=== PATIENT | male | born 1975 | race African-American/Black ===

== ENCOUNTER 2017-05-04 12:04 | Emergency (ER) | payer OTHER ==
[2017-05-04 13:17] LABS: Hemoglobin 9.7 g/dL (14.0-18.0); Mean Corpuscular HGB CONC 32.1 g/dL (32.0-36.0); Mean Corpuscular Volume 71.4 fl (80.0-94.0); Mean Platelet Volume 7.7 fL (7.4-10.4); Platelet Count 146 thou/uL (130-400); RBC Distribution Width 19.2 % (11.5-14.5); Red Blood Cell (RBC) Count 4.24 mill/uL (4.70-6.10); White Blood Cell (WBC) Count 4.1 thou/uL (4.8-10.8)
[2017-05-04 13:40] LABS: #Eosinphils 0.1 thou/uL (0.0-0.7); #Lymphocytes 1.3 thou/uL (1.20-3.40); #Monocytes 0.4 thou/uL (0.11-0.59); #Neutrophils 2.4 thou/uL (1.40-6.50); %Basophils 0.4 % (0.0-1.0); %Eosinophils 1.2 % (0.0-10.0); %Lymphocytes 30.2 % (21.0-51.0); %Monocytes 9.7 % (0.0-10.0); %Neutrophils 58.5 % (42.0-75.0); Anisocytosis SLIGHT = 6-15 cells (100X) (0-5/hpf); Hypochromia SLIGHT = 6-15 cells (100X) (0-5/hpf); MDiff Complete? YES; Ovalocytes SLIGHT = 2-5 cells (100X) (0-1/hpf); PLT Morphology Comment Appears Adequate
[2017-05-04 15:59] LABS: ALT (SGPT) 28 U/L (8-55); AST (SGOT) 25 U/L (5-34); Alkaline Phosphatase 123 U/L (40-150); Anion Gap 11 mmol/L (10-20); BUN (Urea Nitrogen) 8 mg/dL (8.9-20.6); Bilirubin, Total 0.6 mg/dL (0.2-1.2); Calc. Creatinine Clearance 0 mL/min (70-130); Carbon Dioxide 27 mmol/L (22-29); Chloride 106 mmol/L (98-107); Estimated GFR-MDRD 75; Globulin 3.2 g/dL (2.4-3.5); Glucose 84 mg/dL (70-105); Potassium 3.9 mmol/L (3.5-5.1); Protein, Total 7.2 g/dL (6.0-8.3); Sodium 140 mmol/L (136-145)
== END 2017-05-04 16:48 | disposition left against medical advice (07) ==
LOC: ERS 12:04
DX: K62.5 Hemorrhage of anus and rectum (principal); I10 Essential (primary) hypertension
CPT/HCPCS: 36415; 80053; 85025; 99283

== ENCOUNTER 2021-08-23 10:44 | Emergency (ER) | payer OTHER, SELFPAY ==
[2021-08-23] MEDS ORDERED: methylPREDNISolone Sod Succ/PF 125 MG/2 ML VIAL ONE (11:22)
[2021-08-23] MEDS ORDERED: Famotidine/PF 20 mg/2ml Vial ONE (11:22)
[2021-08-23] MEDS ORDERED: diphenhydrAMINE 50 MG/ML VIAL ONE (11:22)
[2021-08-23 11:29] LABS: #Eosinphils 0.2 thou/uL (0.0-0.7); #Lymphocytes 1.5 thou/uL (1.20-3.40); #Monocytes 0.5 thou/uL (0.11-0.59); #Neutrophils 2.6 thou/uL (1.40-6.50); %Basophils 0.8 % (0.0-1.0); %Eosinophils 3.9 % (0.0-10.0); %Lymphocytes 31.3 % (21.0-51.0); Hemoglobin 10.1 g/dL (14.0-18.0); Mean Corpuscular Hemoglobin 18.9 pg (27.0-31.0); Mean Corpuscular Volume 62.9 fL (78.0-98.0); Mean Platelet Volume 11.4 fL (7.4-10.4); Platelet Count 162 thou/uL (130-400); RBC Distribution Width 23.3 % (11.5-14.5); Red Blood Cell (RBC) Count 5.33 mill/uL (4.70-6.10); White Blood Cell (WBC) Count 4.8 thou/uL (4.8-10.8)
[2021-08-23 11:31] LABS: Reflex for Review?? NO
[2021-08-23 11:48] LABS: ALT (SGPT) Less than 7 U/L (8-55); AST (SGOT) 10 U/L (5-34); Alkaline Phosphatase 76 U/L (40-110); Anion Gap 13 mmol/L (10-20); BUN (Urea Nitrogen) 19 mg/dL (8.9-20.6); Bilirubin, Total 0.8 mg/dL (0.2-1.2); Calc. Creatinine Clearance 0 mL/min (70-130); Calcium 9.2 mg/dL (7.8-10.44); Carbon Dioxide 22 mmol/L (22-29); Chloride 108 mmol/L (98-107); Estimated GFR 49; Globulin 4.5 g/dL (2.4-3.5); Glucose 89 mg/dL (70-105); Potassium 3.9 mmol/L (3.5-5.1); Protein, Total 8.5 g/dL (6.0-8.3); Sodium 139 mmol/L (136-145)
[2021-08-23 11:53] LABS: Hypochromia MODERATE=16-30 cells (100X) (0-5/hpf); MDiff Complete? YES; Microcytosis MARKED = >30 cells (100X) (0-5/hpf); Ovalocytes MODERATE= 6-15 cells (100X) (0-1/hpf); Platelet Morphology Comment Appears Adequate; Polychromasia SLIGHT = 2-3 cells (100X) (0-2/hpf); Schistocytes SLIGHT = 2-5 cells (100X) (0-1/hpf)
== END 2021-08-23 13:42 | disposition left against medical advice (07) ==
LOC: ERS 10:44
DX: T78.3XXA Angioneurotic edema, initial encounter (principal); I10 Essential (primary) hypertension
CPT/HCPCS: 80053; 85025; 96374; 96375; J1200; J2930; S0028

== ENCOUNTER 2022-03-02 12:33 | Emergency (ER) | payer SELFPAY ==
[2022-03-02] MEDS ORDERED: Ketorolac Tromethamine 30 MG/ML VIAL ONE (13:09)
[2022-03-02] MEDS ORDERED: Acetaminophen 500 MG TAB ONE (13:09)
== END 2022-03-02 13:50 | disposition home or self-care (01) ==
LOC: ERS 12:33
DX: M10.9 Gout, unspecified (principal); I10 Essential (primary) hypertension
CPT/HCPCS: 96372; J1885

== ENCOUNTER 2022-10-06 10:23 | Observation (INO) | payer BC, SELFPAY ==
[2022-10-06 10:55] LABS: #Eosinphils 0.2 thou/uL (0.0-0.7); #Monocytes 0.3 thou/uL (0.11-0.59); #Neutrophils 1.7 thou/uL (1.40-6.50); %Basophils 0.8 % (0.0-1.0); %Eosinophils 4.9 % (0.0-10.0); %Lymphocytes 42.3 % (21.0-51.0); %Monocytes 8.8 % (0.0-10.0); %Neutrophils 42.9 % (42.0-75.0); Hematocrit 35.9 % (42.0-52.0); Hemoglobin 11.2 g/dL (14.0-18.0); Mean Corpuscular HGB CONC 31.2 g/dL (32.0-36.0); Mean Corpuscular Hemoglobin 20.7 pg (27.0-31.0); Mean Corpuscular Volume 66.2 fl (78.0-98.0); RBC Distribution Width 23.4 % (11.5-14.5); Red Blood Cell (RBC) Count 5.42 mill/uL (4.70-6.10); White Blood Cell (WBC) Count 3.9 10x3/uL (4.8-10.8)
[2022-10-06 11:10] LABS: Troponin I 0.048 ng/mL (< 0.028)
[2022-10-06 11:26] LABS: Anisocytosis MODERATE=16-30 cells HPF (0-5); Burr Cells SLIGHT = 2-5 cells HPF (0-1); CellaVision Operator ID LAB.NR; Elliptocytes SLIGHT = 2-5 cells HPF (0-1); Hypochromia SLIGHT = 6-15 cells HPF (0-5); Ovalocytes SLIGHT = 2-5 cells HPF (0-1); Platelet Adequacy Comment Platelets Normal; Polychromasia SLIGHT = 2-3 cells HPF (0-2); Target Cells SLIGHT = 2-5 cells HPF (0-1)
[2022-10-06 11:27] LABS: Platelet Count 160 10x3/uL (130-400)
[2022-10-06 11:42] LABS: ALT (SGPT) Less than 7 U/L (8-55); AST (SGOT) 27 U/L (5-34); Albumin 3.2 g/dL (3.5-5.0); Alkaline Phosphatase 58 U/L (40-110); Anion Gap 13 mmol/L (10-20); Bilirubin, Total 0.9 mg/dL (0.2-1.2); Calc. Creatinine Clearance 0 mL/min (70-130); Calcium 8.6 mg/dL (7.8-10.44); Carbon Dioxide 18 mmol/L (22-29); Chloride 106 mmol/L (98-107); Estimated GFR 51; Globulin 6.7 g/dL (2.4-3.5); Glucose 99 mg/dL (70-105); Lipase 30 U/L (8-78); Potassium 4.2 mmol/L (3.5-5.1); Protein, Total 9.9 g/dL (6.0-8.3); Sodium 133 mmol/L (136-145)
[2022-10-06 11:53] LABS: BUN (Urea Nitrogen) 10 mg/dL (8.9-20.6)
[2022-10-06] MEDS ORDERED: Acetaminophen 325 MG TAB PO PRN (13:19)
[2022-10-06] MEDS ORDERED: HYDROcodone/Acetaminophen 5/325 mg Tablet PO PRN (13:19)
[2022-10-06 14:34] LABS: Troponin I 0.054 ng/mL (< 0.028)
[2022-10-06 16:02] VITALS: BMI 26.6
[2022-10-06] MEDS: Carvedilol 6.25 MG TAB PO SCH (16:55)
[2022-10-06 17:53] LABS: Troponin I 0.054 ng/mL (< 0.028)
[2022-10-06] MEDS ORDERED: Atorvastatin Calcium 40 MG TAB PO SCH (21:00)
[2022-10-07 06:12] LABS: #Eosinphils 0.2 thou/uL (0.0-0.7); #Monocytes 0.5 thou/uL (0.11-0.59); %Basophils 0.6 % (0.0-1.0); %Eosinophils 5.7 % (0.0-10.0); %Lymphocytes 51.1 % (21.0-51.0); %Monocytes 14.6 % (0.0-10.0); Hematocrit 33.9 % (42.0-52.0); Hemoglobin 10.6 g/dL (14.0-18.0); Mean Corpuscular HGB CONC 31.3 g/dL (32.0-36.0); Mean Corpuscular Hemoglobin 20.7 pg (27.0-31.0); Mean Corpuscular Volume 66.1 fl (78.0-98.0); Platelet Count 155 10x3/uL (130-400); RBC Distribution Width 23.1 % (11.5-14.5); Red Blood Cell (RBC) Count 5.13 mill/uL (4.70-6.10); White Blood Cell (WBC) Count 3.5 10x3/uL (4.8-10.8)
[2022-10-07 06:27] LABS: Anion Gap 10 mmol/L (10-20); BUN (Urea Nitrogen) 10 mg/dL (8.9-20.6); Calc. Creatinine Clearance 82 mL/min (70-130); Calcium 8.5 mg/dL (7.8-10.44); Carbon Dioxide 21 mmol/L (22-29); Cardiac Risk 5.4 (Less than 4.5); Chloride 106 mmol/L (98-107); Cholesterol 102 mg/dl (< 200 Desired); Estimated GFR 63; Glucose 82 mg/dL (70-105); HDL Cholesterol 19 mg/dL (>60 Neg Risk); LDL Cholesterol, Calculated 68 mg/dL; Magnesium 1.6 mg/dL (1.6-2.6); Potassium 3.7 mmol/L (3.5-5.1); Sodium 133 mmol/L (136-145); Triglycerides 73 mg/dL (Less than 150)
[2022-10-07 06:29] LABS: Delete Auto Diff?? NO
[2022-10-07] MEDS ORDERED: Aspirin 81 mg Enteric Coated Tablet PO SCH (09:00)
[2022-10-07] MEDS ORDERED: Losartan 25 MG TAB PO SCH (09:00)
[2022-10-07] MEDS: Carvedilol 6.25 MG TAB PO SCH (09:30)
[2022-10-07] MEDS ORDERED: Magnesium 2 GM/50 ML(in water) 2 GM in Premix Bag 1 BAG IVPB SCH (11:00)
[2022-10-07 11:47] VITALS: BP 124/84; TEMP 98.3
[2022-10-08 13:38] LABS: %CD4 (Helper/Inducer) 12.9 % (30.8-58.5); Absolute CD4 245 /uL (359-1519); Lymphocytes/Gated Cell Count 1.9 x10E3/uL (0.7-3.1); Total Lymphocyte 53 % (Not Estab.); WBC Total Count 3.6 x10E3/uL (3.4-10.8)
[2022-10-08 22:36] LABS: LOG10 HIV-1 RNA 4.097 (.)
== END 2022-10-07 13:05 | disposition home or self-care (01) ==
LOC: ERS 10:23 → 2NO 12:54
PROVIDERS: ADMIT Family Medicine; ATTEND Hospitalist
DX: B20 Human immunodeficiency virus [HIV] disease (principal); I42.8 Other cardiomyopathies; E83.42 Hypomagnesemia; I13.0 Hypertensive heart and chronic kidney disease with heart failure and stage 1 through stage 4 chronic kidney disease, or unspecified chronic kidney disease; I50.22 Chronic systolic (congestive) heart failure; N18.9 Chronic kidney disease, unspecified; Z91.041 Radiographic dye allergy status
CPT/HCPCS: 36415; 70450; 71045; 80048; 80053; 80061; 83690; 83735; 83880; 84443; 84484; 85025; 86361; 87536; 93005; 94760; 96374; G0378; J3475

== ENCOUNTER 2023-04-10 11:05 | Inpatient (IN) | payer BC, SELFPAY ==
[2023-04-10 12:04] LABS: #Eosinphils 0.1 thou/uL (0.0-0.7); #Monocytes 0.4 thou/uL (0.11-0.59); #Neutrophils 2.8 thou/uL (1.40-6.50); %Basophils 0.7 % (0.0-1.0); %Monocytes 9.7 % (0.0-10.0); %Neutrophils 62.6 % (42.0-75.0); Hematocrit 40.4 % (42.0-52.0); Hemoglobin 12.7 g/dL (14.0-18.0); Mean Corpuscular HGB CONC 31.4 g/dL (32.0-36.0); Mean Corpuscular Hemoglobin 21.5 pg (27.0-31.0); Mean Corpuscular Volume 68.4 fl (78.0-98.0); Platelet Count 195 10x3/uL (130-400); RBC Distribution Width 22.2 % (11.5-14.5); Red Blood Cell (RBC) Count 5.91 mill/uL (4.70-6.10); White Blood Cell (WBC) Count 4.4 10x3/uL (4.8-10.8)
[2023-04-10 12:26] LABS: ALT (SGPT) 9 U/L (8-55); AST (SGOT) 12 U/L (5-34); Albumin 3.7 g/dL (3.5-5.0); Alkaline Phosphatase 62 U/L (40-110); Anion Gap 12 mmol/L (10-20); BUN (Urea Nitrogen) 17 mg/dL (8.9-20.6); Bilirubin, Total 1.3 mg/dL (0.2-1.2); Calc. Creatinine Clearance 0 mL/min (70-130); Calcium 8.6 mg/dL (7.8-10.44); Carbon Dioxide 23 mmol/L (22-29); Chloride 108 mmol/L (98-107); Estimated GFR 51; Globulin 4.6 g/dL (2.4-3.5); Glucose 83 mg/dL (70-105); Potassium 3.7 mmol/L (3.5-5.1); Protein, Total 8.3 g/dL (6.0-8.3); Sodium 139 mmol/L (136-145)
[2023-04-10 12:28] LABS: Anisocytosis SLIGHT = 6-15 cells HPF (0-5); CellaVision Operator ID LAB.KW3; Elliptocytes SLIGHT = 2-5 cells HPF (0-1); Hypochromia SLIGHT = 6-15 cells HPF (0-5); Platelet Adequacy Comment Platelets Normal; Polychromasia SLIGHT = 2-3 cells HPF (0-2); Schistocytes SLIGHT = 2-5 cells HPF (0-1); Target Cells SLIGHT = 2-5 cells HPF (0-1)
[2023-04-10 12:37] LABS: Troponin I 0.063 ng/mL (< 0.028)
[2023-04-10] MEDS ORDERED: dilTIAZem 125 MG/25 ML SDV ONE (12:38)
[2023-04-10] MEDS ORDERED: Enoxaparin 100 MG (1 mL) SYRINGE ONE (13:08)
[2023-04-10] MEDS ORDERED: Aspirin 325 MG TAB ONE (13:08)
[2023-04-10] MEDS ORDERED: Acetaminophen 325 MG TAB PO PRN (14:03)
[2023-04-10] MEDS ORDERED: dilTIAZem 125 MG in Sodium Chloride 0.9% 100 ML IVPB SCH (14:15)
[2023-04-10] MEDS ORDERED: dilTIAZem 125 MG, Admixture Fee 1 EACH in Sodium Chloride 0.9% 100 ML IVPB SCH (14:30)
[2023-04-10 14:35] LABS: Magnesium 1.9 mg/dL (1.6-2.6)
[2023-04-10 14:55] LABS: Phosphorus 1.6 mg/dL (2.3-4.7)
[2023-04-10] MEDS: PHOS-NAK 1 PKT PACK PO SCH (15:44)
[2023-04-10 17:02] LABS: Hemoglobin A1c 4.6 % (4.0-6.0)
[2023-04-10 17:07] LABS: Cardiac Risk 4.5 (Less than 4.5)
[2023-04-10 17:20] LABS: Critical Call Chem Troponin I NUR.SD13 @1720; Troponin I 0.256 ng/mL (< 0.028)
[2023-04-10 17:26] LABS: HBCM Index 0.08 S/CO (0-0.79); HBSAg Index 0.27 S/CO (0-0.99); Hep A IgM AB Non-Reactive S/CO (NonReactive); Hep B Surf Ag Non-Reactive S/CO (NonReactive); Hep C IgG Ab Non-Reactive S/CO (NonReactive); Hepatitis B Core IgM Abs Non-Reactive S/CO (NonReactive)
[2023-04-10] MEDS: Carvedilol 6.25 MG TAB PO SCH (18:12)
[2023-04-10 19:19] VITALS: BMI 27.1
[2023-04-10] MEDS: Rosuvastatin 20 MG TAB PO SCH (19:52)
[2023-04-10] MEDS: Enoxaparin 100 MG (1 mL) SYRINGE SC SCH (19:52)
[2023-04-10] MEDS ORDERED: Rosuvastatin 20 MG TAB PO SCH (21:00)
[2023-04-11 00:11] LABS: Critical Call Chem Troponin I NUR.TM8@0010; Troponin I 0.292 ng/mL (< 0.028)
[2023-04-11 00:13] LABS: Phosphorus 3.5 mg/dL (2.3-4.7)
[2023-04-11 04:09] LABS: #Eosinphils 0.2 thou/uL (0.0-0.7); #Monocytes 0.5 thou/uL (0.11-0.59); #Neutrophils 1.6 thou/uL (1.40-6.50); %Basophils 0.9 % (0.0-1.0); %Eosinophils 4.6 % (0.0-10.0); %Lymphocytes 46.7 % (21.0-51.0); %Monocytes 11.4 % (0.0-10.0); %Neutrophils 36.2 % (42.0-75.0); Hematocrit 40.4 % (42.0-52.0); Hemoglobin 12.4 g/dL (14.0-18.0); Mean Corpuscular HGB CONC 30.7 g/dL (32.0-36.0); Mean Corpuscular Hemoglobin 21.2 pg (27.0-31.0); Mean Corpuscular Volume 69.1 fl (78.0-98.0); Platelet Count 211 10x3/uL (130-400); RBC Distribution Width 22.4 % (11.5-14.5); Red Blood Cell (RBC) Count 5.85 mill/uL (4.70-6.10); White Blood Cell (WBC) Count 4.4 10x3/uL (4.8-10.8)
[2023-04-11 04:40] LABS: Phosphorus 3.5 mg/dL (2.3-4.7)
[2023-04-11 04:47] LABS: Anion Gap 11 mmol/L (10-20); BUN (Urea Nitrogen) 18 mg/dL (8.9-20.6); Calc. Creatinine Clearance 80 mL/min (70-130); Calcium 8.4 mg/dL (7.8-10.44); Carbon Dioxide 23 mmol/L (22-29); Chloride 108 mmol/L (98-107); Estimated GFR 59; Glucose 93 mg/dL (70-105); Magnesium 1.9 mg/dL (1.6-2.6); Potassium 3.6 mmol/L (3.5-5.1); Sodium 138 mmol/L (136-145)
[2023-04-11 04:50] LABS: Critical Call Chem Troponin I RESULT DECREASING; Troponin I 0.262 ng/mL (< 0.028)
[2023-04-11] MEDS: Aspirin 81 mg Enteric Coated Tablet PO SCH (08:07)
[2023-04-11] MEDS: FLU VACC QS2023-24(6MOS UP)/PF 60 MCG/0.5 ML SYRINGE IM ONE (08:08)
[2023-04-11 08:48] VITALS: TEMP 98.2
[2023-04-11] MEDS: Amiodarone 150 MG in Dextrose 5% in Water 100 ML IVPB SCH (10:16)
[2023-04-11] MEDS: Amiodarone 450 MG in Dextrose 5% in Water 250 ML IVPB SCH (10:27)
[2023-04-11 12:38] VITALS: BP 130/63
[2023-04-11 15:20] LABS: Syphilis Antibody Nonreactive (Nonreactive); Syphilis Antibody Index 0.09 S/CO (<1.00 Non-Reactive)
[2023-04-12 14:14] LABS: %CD4 (Helper/Inducer) 28.2 % (30.8-58.5); Absolute CD4 479 /uL (359-1519); Lymphocytes/Gated Cell Count 1.7 x10E3/uL (0.7-3.1); Total Lymphocyte 35 % (Not Estab.); WBC Total Count 4.9 x10E3/uL (3.4-10.8)
== END 2023-04-11 13:43 | disposition left against medical advice (07) | DRG 281 ==
LOC: ERS 11:05 → ERHOLD 13:09 → 2SW 17:26 → OBSVTOIN 04-11 10:55
PROVIDERS: ADMIT Internal Medicine; ATTEND Internal Medicine
DX: I48.91 Unspecified atrial fibrillation (principal); I21.A1 Myocardial infarction type 2; I13.0 Hypertensive heart and chronic kidney disease with heart failure and stage 1 through stage 4 chronic kidney disease, or unspecified chronic kidney disease; I50.22 Chronic systolic (congestive) heart failure; N17.9 Acute kidney failure, unspecified; I42.9 Cardiomyopathy, unspecified; N18.9 Chronic kidney disease, unspecified; E03.8 Other specified hypothyroidism; Z21 Asymptomatic human immunodeficiency virus [HIV] infection status; Z79.899 Other long term (current) drug therapy
CPT/HCPCS: 36415; 71045; 80048; 80053; 80061; 80074; 83036; 83735; 83880; 84100; 84439; 84443; 84484; 85025; 86361; 86780; 90471; 90686; 93005; 93010; 93306; 96372; 96374; 96375; 96376; G0008; G0378; J0282; J1650; J7070

== ENCOUNTER 2023-12-18 14:53 | Inpatient (IN) | payer BC, OTHER ==
[~2023-12-18 14:53] MED LIST: Iopamidol-370 76% 500 ML MDV (1 ML CHARGE) ONE
[2023-12-18] MEDS ORDERED: Ondansetron PF 4 MG/2 ML Vial ONE (15:14)
[2023-12-18 15:48] LABS: Hematocrit 47.2 % (42.0-52.0); Hemoglobin 14.7 g/dL (14.0-18.0); Mean Corpuscular HGB CONC 31.1 g/dL (32.0-36.0); Mean Corpuscular Hemoglobin 22.8 pg (27.0-31.0); Mean Corpuscular Volume 73.1 fL (78.0-98.0); Platelet Count 267 10x3/uL (130-400); RBC Distribution Width 19.9 % (11.5-14.5); Red Blood Cell (RBC) Count 6.46 mill/uL (4.70-6.10)
[2023-12-18 16:07] LABS: #Basophils Less than 0.03 10x3/uL (0.0-0.2); #Eosinophils Less than 0.03 10x3/uL (0.0-0.7); %Basophils 0.2 % (0.0-1.0); %Eosinophils 0.2 % (0.0-10.0); %Lymphocytes 11.3 % (21.0-51.0); %Monocytes 3.8 % (0.0-10.0); %Neutrophils 84.3 % (42.0-75.0)
[2023-12-18 16:09] LABS: Anisocytosis SLIGHT = 6-15 cells HPF (0-5); Elliptocytes SLIGHT = 2-5 cells HPF (0-1); Microcytosis SLIGHT = 6-15 cells HPF (0-5); Platelet Adequacy Comment Platelets Normal; Polychromasia SLIGHT = 2-3 cells HPF (0-2); Tear Drops SLIGHT = 2-5 cells HPF (0-1)
[2023-12-18 16:14] LABS: ALT (SGPT) 9 U/L (8-55); AST (SGOT) 21 U/L (5-34); Albumin 4.1 g/dL (3.5-5.0); Alkaline Phosphatase 93 U/L (40-110); Anion Gap 16 mmol/L (10-20); BUN (Urea Nitrogen) 14 mg/dL (8.9-20.6); Bilirubin, Total 1.5 mg/dL (0.2-1.2); Calc. Creatinine Clearance 0 mL/min (70-130); Calcium 9.5 mg/dL (7.8-10.44); Carbon Dioxide 22 mmol/L (22-29); Chloride 107 mmol/L (98-107); Estimated GFR 62; Globulin 5.7 g/dL (2.4-3.5); Glucose 108 mg/dL (70-105); Lipase 25 U/L (8-78); Magnesium 2.1 mg/dL (1.6-2.6); Potassium 4.9 mmol/L (3.5-5.1); Protein, Total 9.8 g/dL (6.0-8.3); Sodium 140 mmol/L (136-145)
[2023-12-18 16:18] LABS: Troponin I 0.024 ng/mL (< 0.028)
[2023-12-18] MEDS ORDERED: Morphine 4 MG/ML VIAL ONE ×2 (17:00→19:57)
[2023-12-18] MEDS ORDERED: hydrALAZINE 20 MG/ML VIAL ONE ×2 (17:28→19:04)
[2023-12-18 18:54] LABS: Bacteria/HPF None Seen HPF (None Seen); Bilirubin Negative (Negative); Blood, Urine 1+ (Negative); CAUTI Indications for Culture Alt mental st,lethar; Clarity Clear (Clear); Glucose, Urine (Dipstick) Normal (Negative); Ketone, Urine Trace mg/dL (Negative); Leukocyte Negative Leu/uL (Negative); Nitrite Negative (Negative); Protein, Urine (Dipstick) 300 mg/dL (Neg-Trace); RBC/HPF 0-3 HPF (0-3); Squamous Epithelial None Seen HPF (0-3); Urobilinogen Normal mg/dL (Less than 2); WBC/HPF 0-3 HPF (0-3)
[2023-12-18 18:56] LABS: Specific Gravity, Urine 1.046 (1.002-1.036)
[2023-12-18 18:57] LABS: Urine Culture Reflex No No
[2023-12-18] MEDS ORDERED: Dicyclomine 20 MG/2 ML VIAL ONE (19:04)
[2023-12-18] MEDS ORDERED: Ketorolac Tromethamine 30 MG (1 mL) VIAL ONE (19:04)
[2023-12-18] MEDS ORDERED: Piperacillin/Tazobactam 4.5 GM VIAL ONE (19:52)
[2023-12-18] MEDS ORDERED: Sodium Chloride 0.9% 100 ML ONE (19:52)
[2023-12-18 22:04] LABS: Troponin I 0.026 ng/mL (< 0.028)
[2023-12-18] MEDS ORDERED: Ondansetron ODT 4 MG TAB PO PRN (23:41)
[2023-12-18] MEDS ORDERED: Ondansetron PF 4 MG/2 ML Vial IVP PRN (23:41)
[2023-12-18] MEDS ORDERED: Ketorolac Tromethamine 30 MG (1 mL) VIAL IVP PRN (23:41)
[2023-12-18] MEDS ORDERED: Acetaminophen 325 MG TAB PO PRN (23:41)
[2023-12-18] MEDS ORDERED: hydrALAZINE 20 MG/ML VIAL SLOW IVP PRN (23:57)
[2023-12-19] MEDS ORDERED: Morphine 2 MG/ML VIAL SLOW IVP PRN (00:02)
[2023-12-19 01:41] VITALS: BMI 27.8
[2023-12-19] MEDS: Piperacillin/Tazobactam 3.375 GM in Sodium Chloride 0.9% 100 ML IVPB SCH (02:11)
[2023-12-19 05:22] LABS: #Basophils 0.03 10x3/uL (0.0-0.2); %Basophils 0.3 % (0.0-1.0); %Eosinophils 0.4 % (0.0-10.0); %Lymphocytes 9.7 % (21.0-51.0); %Monocytes 9.6 % (0.0-10.0); %Neutrophils 79.6 % (42.0-75.0); Hematocrit 42.1 % (42.0-52.0); Hemoglobin 13.5 g/dL (14.0-18.0); Mean Corpuscular HGB CONC 32.1 g/dL (32.0-36.0); Mean Corpuscular Hemoglobin 22.4 pg (27.0-31.0); Mean Corpuscular Volume 69.8 fL (78.0-98.0); Platelet Count 201 10x3/uL (130-400); RBC Distribution Width 19.7 % (11.5-14.5); Red Blood Cell (RBC) Count 6.03 mill/uL (4.70-6.10)
[2023-12-19 05:48] LABS: ALT (SGPT) 7 U/L (8-55); AST (SGOT) 11 U/L (5-34); Albumin 3.4 g/dL (3.5-5.0); Alkaline Phosphatase 80 U/L (40-110); Anion Gap 14 mmol/L (10-20); BUN (Urea Nitrogen) 13 mg/dL (8.9-20.6); Bilirubin, Total 1.7 mg/dL (0.2-1.2); Calc. Creatinine Clearance 86 mL/min (70-130); Calcium 8.8 mg/dL (7.8-10.44); Carbon Dioxide 21 mmol/L (22-29); Chloride 106 mmol/L (98-107); Estimated GFR 63; Globulin 4.5 g/dL (2.4-3.5); Glucose 116 mg/dL (70-105); Potassium 3.8 mmol/L (3.5-5.1); Protein, Total 7.9 g/dL (6.0-8.3); Sodium 137 mmol/L (136-145)
[2023-12-19 06:21] LABS: Anisocytosis SLIGHT = 6-15 cells HPF (0-5); Elliptocytes SLIGHT = 2-5 cells HPF (0-1); Microcytosis SLIGHT = 6-15 cells HPF (0-5); Platelet Adequacy Comment Platelets Normal; Polychromasia SLIGHT = 2-3 cells HPF (0-2)
[2023-12-19] MEDS ORDERED: Ketorolac Tromethamine 30 MG (1 mL) VIAL IVP PRN (08:16)
[2023-12-19] MEDS ORDERED: BIKTARVY PO SCH (09:00)
[2023-12-19] MEDS: FLU (Fluarix Triv) TS24-25(6MOS UP)/PF 45 MCG/0.5 ML Syringe IM ONE (10:10)
[2023-12-19] MEDS: Carvedilol 25 MG TAB PO SCH ×2 (10:17→20:40)
[2023-12-19] MEDS: Sacubitril 24MG/Valsartan 26 MG TAB PO SCH (10:17)
[2023-12-19] MEDS: Apixaban 5 MG TAB PO SCH (10:17)
[2023-12-19] MEDS: Dextrose 5 %-0.45 % NaCl 1,000 ML IV SCH (15:30)
[2023-12-19] MEDS ORDERED: Dextrose 5 %-0.45 % NaCl 500 ML IV SCH (16:30)
[2023-12-19] MEDS: D5 1/2 NS 500 ML IV SCH (17:23)
[2023-12-20 06:06] LABS: #Basophils 0.04 10x3/uL (0.0-0.2); %Basophils 0.5 % (0.0-1.0); %Lymphocytes 14.3 % (21.0-51.0); %Monocytes 11.8 % (0.0-10.0); %Neutrophils 72.3 % (42.0-75.0); Hematocrit 41.6 % (42.0-52.0); Hemoglobin 13.5 g/dL (14.0-18.0); Mean Corpuscular HGB CONC 32.5 g/dL (32.0-36.0); Mean Corpuscular Hemoglobin 22.8 pg (27.0-31.0); Mean Corpuscular Volume 70.2 fL (78.0-98.0); Platelet Count 192 10x3/uL (130-400); RBC Distribution Width 19.7 % (11.5-14.5); Red Blood Cell (RBC) Count 5.93 mill/uL (4.70-6.10)
[2023-12-20 06:16] LABS: ALT (SGPT) 9 U/L (8-55); AST (SGOT) 11 U/L (5-34); Alkaline Phosphatase 76 U/L (40-110); Anion Gap 13 mmol/L (10-20); BUN (Urea Nitrogen) 16 mg/dL (8.9-20.6); Bilirubin, Total 1.3 mg/dL (0.2-1.2); Calc. Creatinine Clearance 81 mL/min (70-130); Calcium 8.6 mg/dL (7.8-10.44); Carbon Dioxide 23 mmol/L (22-29); Chloride 103 mmol/L (98-107); Estimated GFR 59; Globulin 4.7 g/dL (2.4-3.5); Glucose 95 mg/dL (70-105); Potassium 3.5 mmol/L (3.5-5.1); Protein, Total 7.7 g/dL (6.0-8.3); Sodium 135 mmol/L (136-145)
[2023-12-20] MEDS ORDERED: Dicyclomine 10 MG CAP PO PRN (08:28)
[2023-12-21 05:04] LABS: #Basophils 0.04 10x3/uL (0.0-0.2); %Basophils 0.8 % (0.0-1.0); %Eosinophils 4.1 % (0.0-10.0); %Lymphocytes 32.2 % (21.0-51.0); %Monocytes 15.6 % (0.0-10.0); %Neutrophils 46.9 % (42.0-75.0); Hematocrit 42.3 % (42.0-52.0); Hemoglobin 13.4 g/dL (14.0-18.0); Mean Corpuscular HGB CONC 31.7 g/dL (32.0-36.0); Mean Corpuscular Hemoglobin 22.5 pg (27.0-31.0); Platelet Count 167 10x3/uL (130-400); RBC Distribution Width 19.5 % (11.5-14.5); Red Blood Cell (RBC) Count 5.96 mill/uL (4.70-6.10)
[2023-12-21 05:26] LABS: ALT (SGPT) 9 U/L (8-55); AST (SGOT) 14 U/L (5-34); Albumin 2.8 g/dL (3.5-5.0); Alkaline Phosphatase 66 U/L (40-110); Anion Gap 11 mmol/L (10-20); BUN (Urea Nitrogen) 20 mg/dL (8.9-20.6); Calc. Creatinine Clearance 70 mL/min (70-130); Calcium 8.4 mg/dL (7.8-10.44); Carbon Dioxide 24 mmol/L (22-29); Chloride 103 mmol/L (98-107); Estimated GFR 49; Globulin 4.7 g/dL (2.4-3.5); Glucose 90 mg/dL (70-105); Potassium 3.6 mmol/L (3.5-5.1); Protein, Total 7.5 g/dL (6.0-8.3); Sodium 134 mmol/L (136-145)
[2023-12-21 05:48] LABS: Anisocytosis SLIGHT = 6-15 cells HPF (0-5); Elliptocytes SLIGHT = 2-5 cells HPF (0-1); Platelet Adequacy Comment Platelets Normal; Polychromasia SLIGHT = 2-3 cells HPF (0-2)
[2023-12-21 11:33] VITALS: BP 119/74; TEMP 98
== END 2023-12-21 14:21 | disposition home or self-care (01) | DRG 445 ==
LOC: ERS 14:53 → SURG A 23:31 → OBSVTOIN 12-19 12:33
PROVIDERS: ADMIT Family Medicine; ATTEND Family Medicine
DX: K80.00 Calculus of gallbladder with acute cholecystitis without obstruction (principal); I13.0 Hypertensive heart and chronic kidney disease with heart failure and stage 1 through stage 4 chronic kidney disease, or unspecified chronic kidney disease; I42.9 Cardiomyopathy, unspecified; I50.22 Chronic systolic (congestive) heart failure; K59.00 Constipation, unspecified; N18.2 Chronic kidney disease, stage 2 (mild); I48.0 Paroxysmal atrial fibrillation; F17.210 Nicotine dependence, cigarettes, uncomplicated; Z21 Asymptomatic human immunodeficiency virus [HIV] infection status; I16.0 Hypertensive urgency; K44.9 Diaphragmatic hernia without obstruction or gangrene; Z91.141 Patient's other noncompliance with medication regimen due to financial hardship
CPT/HCPCS: 36415; 71045; 74177; 76705; 80053; 81001; 83605; 83690; 83735; 84484; 85025; 90656; 93005; 93306; 96361; 96365; 96372; 96375; 96376; G0378; J0360; J1885; J2272; J2405; J2543; J7042; Q9967